=== PATIENT | female | born 1960 | race Caucasian/White ===

== ENCOUNTER 2017-04-01 06:47 | Inpatient (IN) ==
[2017-03-25 15:04] LABS: Basophils # (Auto) 0.1 K/mcL (0.0-0.3); Basophils % (Auto) 0.6 % (0.0-2.0); Eosinophils # (Auto) 0.1 K/mcL (0.0-0.7); Eosinophils % (Auto) 1.2 % (0.0-7.0); Granulocytes % (Auto) 58.8 % (38.0-78.0); Lymphocytes # (Auto) 2.7 K/mcL (1.5-4.8); Lymphocytes % (Auto) 32.4 % (15.5-49.0); Mean Cell Volume 86.3 fL (80.0-100.0); Mean Corpuscular HGB Conc 30.9 g/dL (31.0-36.0); Mean Corpuscular Hemoglobin 26.6 pg (26.0-34.0); Monocytes # (Auto) 0.6 K/mcL (0.1-0.9); Platelet Count 239 K/mcL (140-440); RBC 4.61 M/mcL (4.00-5.20); Red Cell Distribution Width 14.2 % (11.5-14.5)
[2017-03-25 15:27] LABS: Blood Urea Nitrogen 16 mg/dl (6-20)
[2017-03-26 13:10] LABS: Appearance,Urine CLEAR; Bacteria,Urine FEW /hpf (0); Bilirubin,Urine NEG (NEG); Color,Urine YELLOW; Glucose,Urine (UA) NEGATIVE (NEG); Leukocyte Esterase,Urine 25 /uL (NEG); Mucus,Urine FEW /hpf (0); Nitrate,Urine NEG (NEG); Protein,Urine NEG (NEG); Specific Gravity,Urine 1.024 (1.000-1.035); Urine Blood NEG mg/dL (<0.03); Urine RBC 2 /hpf (0-1); Urine Squamous Epithelial Cell 6 /hpf (0-4); Urine WBC 1 /hpf (0-4); Urobilinogen,Urine NEG (NEG)
[~2017-04-01 06:47] MED LIST: CELECOXIB 200 MG CAPSULE PO SCH; PREGABALIN 75 MG CAPSULE PO SCH; ceFAZolin 1 GM VIAL IV SCH
[2017-04-01 08:10] LABS: Appearance,Urine CLEAR; Bilirubin,Urine NEG (NEG); Color,Urine YELLOW; Glucose,Urine (UA) NEGATIVE (NEG); Leukocyte Esterase,Urine NEG /uL (NEG); Nitrate,Urine NEG (NEG); Protein,Urine NEG (NEG); Specific Gravity,Urine 1.018 (1.000-1.035); Urine Blood NEG mg/dL (<0.03); Urobilinogen,Urine NEG (NEG)
[2017-04-01] MEDS ORDERED: GENTAMICIN SULFATE 800 MG/20 ML VIAL IR ONE (09:23)
[2017-04-01] MEDS ORDERED: DEXAMETHASONE 10 MG/ML VIAL IV ONE (10:00)
[2017-04-01] MEDS ORDERED: MIDAZOLAM 5 MG/5 ML VIAL IV ONE (10:00)
[2017-04-01] MEDS ORDERED: PROPOFOL 200 MG/20 ML VIAL IV ONE (10:00)
[2017-04-01] MEDS ORDERED: TRANEXAMIC ACID 1,000 MG/10 ML VIAL IV ONE (10:00)
[2017-04-01] MEDS ORDERED: ONDANSETRON 4 MG/2 ML VIAL IV ONE (10:00)
[2017-04-01] MEDS ORDERED: LIDOCAINE HCL/PF 100 MG/5 ML SYRINGE IV ONE (10:00)
[2017-04-01] MEDS ORDERED: fentaNYL 100 MCG/2 ML VIAL IV PRN (11:02)
[2017-04-01] MEDS ORDERED: diphenhydrAMINE 50 MG/ML VIAL IV PRN (11:02)
[2017-04-01] MEDS ORDERED: METHOCARBAMOL 1,000 MG/10 ML VIAL IV PRN (11:02)
[2017-04-01] MEDS ORDERED: ONDANSETRON 4 MG/2 ML VIAL IV PRN (11:02)
[2017-04-01] MEDS ORDERED: BENZOCAINE/MENTHOL 1 LOZENGE PO PRN ×2 (11:02→11:31)
[2017-04-01] MEDS ORDERED: FLUMAZENIL 0.1 MG/ML ML IV PRN (11:02)
[2017-04-01] MEDS ORDERED: MEPERIDINE 25 MG/ML SYRINGE IV PRN (11:02)
[2017-04-01] MEDS ORDERED: LACTATED RINGERS 250 ML IV PRN (11:02)
[2017-04-01] MEDS ORDERED: IPRATROPIUM/ALBUTEROL 3 ML AMPUL.NEB NEB PRN (11:02)
[2017-04-01] MEDS ORDERED: HYDROmorphone 2 MG/ML SYRINGE IV PRN (11:02)
[2017-04-01] MEDS ORDERED: NALOXONE HCL 0.4 MG/ML VIAL IV PRN (11:02)
[2017-04-01] MEDS ORDERED: PROMETHAZINE 25 MG/ML VIAL IV PRN ×2 (11:02→11:31)
[2017-04-01] MEDS ORDERED: LACTATED RINGERS 1,000 ML IV SCH (11:15)
--- NOTE | 2017-04-01 11:30 | Brief Operative Note ---
Date of procedure: 04/01/17 Pre-op diagnosis: left hip oa Post-op diagnosis: same Procedure: left total hip arthroplasty Grafts/Implants: Yes Anesthesia: spinal Complications: none Surgeon: Gilberto Millan Frozen Yogurt Maker: Madina Anderson Estimated blood loss (cc): 150 Specimens Removed/Pathology: none sent Condition: stable Disposition: PACU
[2017-04-01] MEDS ORDERED: HYDROcodone/APAP 10/325MG TABLET PO PRN (11:31)
[2017-04-01] MEDS ORDERED: TRANEXAMIC ACID 1,000 MG/10 ML VIAL IV SCH (11:31)
[2017-04-01] MEDS ORDERED: MAGNESIUM HYDROXIDE 30 ML ORAL.SUSP PO PRN (11:31)
[2017-04-01] MEDS ORDERED: POLYETHYLENE GLYCOL 3350 17 GM PACKET PO PRN (11:31)
[2017-04-01] MEDS ORDERED: FLEETS ADULT ENEMA PR PRN (11:31)
[2017-04-01] MEDS ORDERED: METHOCARBAMOL 750 MG TABLET PO PRN (11:31)
[2017-04-01] MEDS ORDERED: BISACODYL 10 MG SUPP.RECT PR PRN (11:31)
--- NOTE | 2017-04-01 12:10 | Operative Note ---
DATE OF OPERATION: 04/01/2017 PREOPERATIVE DIAGNOSIS: Degenerative joint disease, left hip. POSTOPERATIVE DIGNOSIS: Degenerative joint disease, left hip. PROCEDURE: Left total hip arthroplasty. SURGEON: Jay Millan M.D. [employer]ET K[employer]EN SUPERVISOR SURGEON: Madina Anderson PA-C. ANESTHESIA: Spinal with LMA assist. ESTIMATED BLOOD LOSS: 100 mL. COMPLICATIONS: None noted. SPECIMENS REMOVED: None. DRAINS: None. IMPLANTS: DePuy Waverly Gription acetabular shell 50 mm; DePuy Waverly Altrx polyethylene acetabular liner neutral 32 x 50 mm; DePuy Ezel Hole Eliminator PS; DePuy Tri-Lock BPS femoral stem with Gription size 4 standard; DePuy Biolox delta ceramic femoral head plus 9, 32 mm. INDICATIONS: The patient has had a longstanding history of worsening pain in the hip that has failed conservative treatment. Radiographs have confirmed advanced degenerative joint disease. After a long discussion about treatment options, the patient elected to proceed with a hip arthroplasty. The risks and benefits were discussed with the patient in detail including, but not limited to, the risks of anesthesia, problems with the heart or lungs related to anesthesia, infection, compromise or injury to the nerves and blood vessels, deep venous thrombosis, pulmonary embolism, pneumonia, continued pain after surgery, worsening pain or symptoms after surgery, swelling, loss of motion, instability, leg length discrepancy, and need for repeat surgery. DESCRIPTION OF PROCEDURE: The patient was seen in pre-anesthesia waiting room where all questions were answered and the correct side and site were identified and marked. The patient was then brought to the operating room and administered the anesthetic and given pre-operative antibiotics. A time-out was then called. The patient was placed in the lateral decubitus position with all prominences well padded using the Lawton frame and the extremity was prepped and draped in the usual sterile fashion. Anesthesia gave the patient 1 gm of tranexamic acid via an intravenous route. A standard posterior approach was made. We dissected through the skin and subcutaneous tissue to the deep fascia. The deep fascia was split in line with the incision and a Charnley retractor was placed. We exposed, tagged, and incised the short external rotators and piriformis tendon and retracted them posteriorly to help protect the sciatic nerve which was palpated throughout the case. We then performed a T-capsulotomy and tagged the capsule edges. Prior to dislocating the hip, we set a length and offset gauge from a Steinmann pin in the iliac wing to a spike on the greater trochanter. The hip was then dislocated and a femoral neck osteotomy was performed to the pre-surgical templated level off the lesser trochanter. The head was removed and sized. We next turned our attention to the acetabulum. Retractors were placed for optimal visualization. A complete labral excision was performed. The capsule was preserved for later closure. We began reaming using anatomic landmarks with the DePuy Waverly acetabular system. We medialized the cup and reamed up to provide good fill and coverage of the trial. When the trial was stable and appropriately positioned with approximately 20 degrees of anteversion and 45 degrees of abduction, we impacted the DePuy Waverly cup and placed a cancellous screw in the posterior-superior quadrant. Osteophytes were removed from around the shell. We placed the trial liner and turned our attention to the femur. We placed retractors for visualization, internally rotated the femur, and established intramedullary access. We broached using the DePuy Tri-Lock stem to a stable platform medial, lateral, and rotationally with the appropriate version. We then performed a calcar reaming off the broach. Trials were then placed and optimized for leg length and stability. We used the leg length and offset guide to confirm our trials. Best stability, length, and offset characteristics were obtained with these sizes. We removed all trials and impacted the polyethylene acetabular liner in a standard fashion after a thorough irrigation. We then impacted the femoral stem to its broached location and placed the head. Final reduction was performed. Again, good stability, leg length, and offset characteristics were noted. We irrigated with three liters of antibiotic saline. We closed the capsule with #2 FiberWire. We placed a deep drain and closed the fascia with a combination of looped #0 Maxon and #0 Vicryl. We closed the subcutaneous tissue and skin in layers out to michelle in the skin. A sterile pressure dressing and abduction wedge was applied. All needle and sponge counts were correct. The patient was transferred to the recovery room in stable condition. Rafa Job ID: [id number] Doc ID: [id number] Jay Millan MD
--- NOTE | 2017-04-01 12:40 | XRay Report ---
HISTORY: Reason for Exam:Post-Op Total Hip FINDINGS: There is a well-positioned left total hip prosthesis. No fracture or abnormal soft tissue calcification are present. Right hip is normal. IMPRESSION: Well-positioned left hip prosthesis Interpreted and Authenticated by: Shyam Uribe 04/01/17
[2017-04-01] MEDS: 0.9 % SODIUM CHLORIDE 1,000 ML IV SCH ×2 (13:08→21:00)
[2017-04-01] MEDS: ONDANSETRON 4 MG/2 ML VIAL IV PRN (13:09)
[2017-04-01] MEDS: 0.9 % SODIUM CHLORIDE 10 ML SYRINGE IV SCH ×2 (14:25→21:11)
[2017-04-01] MEDS: HYDROmorphone 2 MG/ML SYRINGE IV PRN ×3 (14:38→21:18)
[2017-04-01] MEDS ORDERED: traMADol 50 MG TABLET PO PRN (15:30)
[2017-04-01] MEDS ORDERED: HYDROmorphone 2 MG TABLET PO PRN ×4 (15:30→17:30)
[2017-04-01] MEDS ORDERED: SCOPOLAMINE 1 PATCH PATCH TOPICAL ONE (15:58)
[2017-04-01] MEDS: KETOROLAC 15 MG/ML VIAL IV PRN (16:44)
[2017-04-01] MEDS: ceFAZolin 1 GM VIAL IV SCH (17:27)
[2017-04-01] MEDS: ASPIRIN 325 MG ENTERIC COATED TABLET PO SCH (21:17)
[2017-04-01] MEDS: HYDROmorphone 2 MG TABLET PO PRN (21:17)
[2017-04-01] MEDS: DOCUSATE SODIUM 100 MG CAPSULE PO SCH (21:17)
[2017-04-01] MEDS: SENNOSIDES 1 TABLET PO SCH (21:17)
[2017-04-02] MEDS: ceFAZolin 1 GM VIAL IV SCH (01:21)
[2017-04-02] MEDS: HYDROmorphone 2 MG/ML SYRINGE IV PRN ×4 (03:49→13:50)
[2017-04-02] MEDS: 0.9 % SODIUM CHLORIDE 1,000 ML IV SCH ×5 (05:56→22:55)
[2017-04-02] MEDS: 0.9 % SODIUM CHLORIDE 10 ML SYRINGE IV SCH ×3 (05:57→20:33)
--- NOTE | 2017-04-02 06:38 | Orthopedic Progress Note ---
Subjective Patient information: Note initiated : 04/02/17 at 6:36 am Service Date, if different from initiated Date: [] Patient: Dee Correia 57 y/o F admitted on 04/01/17 for Left Total Hip Arthroplasty. Chief Complaint: [] Interval history: doing ok from pain standpoint but nauseated Objective Vital signs: Vital Signs Temp Pulse Resp BP BP Pulse Ox 04/02/17 04:00 98.0 F 59 L 14 125/64 96 04/01/17 23:38 97.7 F 80 14 99/64 92 04/01/17 19:55 98.5 F 73 14 99/63 93 04/01/17 16:00 97.9 F 18 124/78 92 04/01/17 15:00 98.0 F 16 115/76 96 04/01/17 14:21 97.9 F 18 108/64 96 04/01/17 14:06 98.2 F 18 108/71 97 04/01/17 13:51 98.0 F 18 105/67 96 04/01/17 13:35 99 04/01/17 13:21 98.2 F 18 107/73 98 04/01/17 12:53 98.3 F 71 18 112/63 122/74 97 04/01/17 12:45 82 15 110/63 99 04/01/17 12:32 80 11 L 112/64 98 04/01/17 12:16 77 11 L 97/74 99 04/01/17 12:01 97.0 F 95 H 16 101/51 97 04/01/17 06:47 97.5 F 81 20 121/74 97 Intake and Output 04/01/17 04/02/17 04/02/17 21:59 05:59 13:59 Intake Total 100 / 100 1300 / 1300 Output Total 550 / 550 1600 / 1600 Balance -450 / -450 -300 / -300 Intake: IV 1000 / 1000 Sodium Chloride 0.9% 1, 1000 / 1000 000 ml @ 125 mls/hr IV . Q8H [facility] Rx#:[id number] Oral 100 / 100 300 / 300 Output: Void Amount 450 / 450 950 / 950 Emesis 100 / 100 650 / 650 Other: Meal sandwhich & jello Percent of Meal Consumed 100% Feeding Ability Independent # Voids 1 1 # Bowel Movements 1 Weight 198 lb Intake & Output: Intake & Output 04/01/17 04/02/17 04/02/17 21:59 05:59 13:59 Intake Total 100 / 100 1300 / 1300 Output Total 550 / 550 1600 / 1600 Balance -450 / -450 -300 / -300 Weight 198 lb Intake: IV 1000 / 1000 Sodium Chloride 0.9% 1, 1000 / 1000 000 ml @ 125 mls/hr IV . Q8H [facility] Rx#:[id number] Oral 100 / 100 300 / 300 Output: Void Amount 450 / 450 950 / 950 Emesis 100 / 100 650 / 650 Other: Meal sandwhich & jello Percent of Meal Consumed 100% Feeding Ability Independent # Voids 1 1 # Bowel Movements 1 Incision: Yes healing Incision clean and dry: Yes Dressing: Yes clean, Yes dry, Yes intact Weight bearing status: full Neurological exam IM: Yes abnormal gait, Yes alert, Yes oriented X3, Yes neurovascular intact Extremities exam IM: No calf tenderness, Yes Foot pink and warm, Yes neurovascular intact - Labs CBC & BMP: 04/02/17 04:58 03/25/17 13:49 Labs: Orthopedic Labs 03/25/17 13:49 PT 12.6 INR 0.9 04/02/17 03/25/17 04:58 13:49 Hgb 10.7 L 12.3 Hct 31.9 L 39.7 Assessment and Plan (1) Hip osteoarthritis pod 1 s/p angela wbat pain control dvt prophylaxis d/c planning Status: Acute
--- NOTE | 2017-04-02 06:40 | Discharge Summary ---
Ortho Discharge - [facility] - Patient Instructions Diet: Regular Diet Activity: ambulate with assistive device, weight bearing as tolerated Total Hip Protocol: Follow activity instructions as provided by Physical Therapy. Dressing Care: May shower in 2 days Patient Education: Total Hip Replacement (DC) Additional Instructions: Discharge Instructions: Do the exercises at home that physical therapy gave you. Jj [employer] ([employer]) [phone] APPOINTMENT: April 03. Check in at 2:15 for a 2:30 appointment. Take your photo ID, insurance cards, and current medication list with you to your first physical therapy appointment. Take your prescription to hot die picker any medication or equipment (such as walker, crutches, toilet riser or C.P.M.) Wear comfortable clothing for your physical therapy. Weight bearing as tolerated. If you have the Aquacel Ag dressing, leave in place for 7 days then remove. If dressing becomes soiled (turns black), remove and use gauze 4x4 dressing and silvasorb ointment and change daily. Keep incision clean and dry. If you have Dermabond (a dressing with a mesh-like appearance), leave open to air. You may start showering on post op day #2. The Dermabond dressing can get wet, do not scrub dressing. Pat dry. To avoid constipation while taking any narcotic pain medication, take an over the counter stool softener/laxative. Use your Cryocuff or ice packs as directed, on for 20 minutes at a time throughout the day. This and elevation will help with pain and swelling. Call your physician for fevers above 100.5 or pain not controlled by medication. Your prescriptions are with your discharge information. Some medications were electronically transmitted to your pharmacy of choice. - Problem Maintenance (1) Hip osteoarthritis Status: Acute - Follow Up Plan Follow Up Appointments: Madina Anderson PA-C [Physician [employer] Team Member] - 04/16/17 9:20 am Disposition: Home, Self-Care Prognosis: Good Rehab Potential: Good I certify that the patient requires SNF services: No Overall status at discharge: patient is progressing back to baseline - Orders For Discharge Prescriptions: Aspirin [Ecotrin] 325 mg PO BID #60 Docusate Sodium [Colace] 100 mg PO BID #60 capsule traMADol [Ultram] 1 - 2 tab PO Q4HP PRN #60 tablet PRN Reason: Pain
[2017-04-02] MEDS: LEVOTHYROXINE 50 MCG TABLET PO SCH (07:18)
[2017-04-02] MEDS: ASPIRIN 325 MG ENTERIC COATED TABLET PO SCH ×2 (09:17→20:31)
[2017-04-02] MEDS: FERROUS SULFATE 325 MG TABLET PO SCH (09:17)
[2017-04-02] MEDS: DOCUSATE SODIUM 100 MG CAPSULE PO SCH ×2 (09:17→20:33)
[2017-04-02] MEDS: ONDANSETRON 4 MG/2 ML VIAL IV PRN (15:09)
[2017-04-02] MEDS: traMADol 50 MG TABLET PO PRN ×2 (20:32→23:22)
[2017-04-02] MEDS: SENNOSIDES 1 TABLET PO SCH (20:33)
[2017-04-03] MEDS: KETOROLAC 15 MG/ML VIAL IV PRN (00:17)
[2017-04-03] MEDS: HYDROmorphone 2 MG TABLET PO PRN (00:18)
[2017-04-03] MEDS: traMADol 50 MG TABLET PO PRN ×4 (04:34→15:27)
[2017-04-03] MEDS: 0.9 % SODIUM CHLORIDE 1,000 ML IV SCH ×2 (05:49→12:09)
[2017-04-03] MEDS: 0.9 % SODIUM CHLORIDE 10 ML SYRINGE IV SCH ×2 (06:39→13:14)
--- NOTE | 2017-04-03 06:52 | Orthopedic Progress Note ---
Subjective Patient information: Note initiated : 04/03/17 at 6:51 am Service Date, if different from initiated Date: [] Patient: Dee Correia 57 y/o F admitted on 04/01/17 for Left Total Hip Arthroplasty. Chief Complaint: [] Interval history: doing well but still nauseated Objective Vital signs: Vital Signs Temp Pulse Pulse Resp BP Pulse Ox 04/03/17 04:15 98.6 F 84 16 111/69 93 04/02/17 23:23 98.2 F 77 24 H 115/69 93 04/02/17 20:00 98.0 F 82 24 H 119/59 93 04/02/17 17:07 96 04/02/17 16:00 97.0 F 14 136/69 90 04/02/17 11:58 97.5 F 14 110/70 96 04/02/17 07:15 97.6 F 14 103/65 96 04/02/17 07:10 86 97 Intake and Output 04/02/17 04/03/17 04/03/17 21:59 05:59 13:59 Intake Total 1110 / 1110 Output Total 1000 / 1000 750 / 750 Balance -1000 / -1000 360 / 360 Intake: IV 960 / 960 Sodium Chloride 0.9% 1, 960 / 960 000 ml @ 125 mls/hr IV . Q8H [facility] Rx#:[id number] Oral 150 / 150 Output: Void Amount 500 / 500 750 / 750 Emesis 500 / 500 Other: # Voids 1 1 Weight 197 lb 8 oz Intake & Output: Intake & Output 04/02/17 04/03/17 04/03/17 21:59 05:59 13:59 Intake Total 1110 / 1110 Output Total 1000 / 1000 750 / 750 Balance -1000 / -1000 360 / 360 Weight 197 lb 8 oz Intake: IV 960 / 960 Sodium Chloride 0.9% 1, 960 / 960 000 ml @ 125 mls/hr IV . Q8H [facility] Rx#:[id number] Oral 150 / 150 Output: Void Amount 500 / 500 750 / 750 Emesis 500 / 500 Other: # Voids 1 1 Incision: Yes healing Incision clean and dry: Yes Dressing: Yes clean, Yes dry, Yes intact Weight bearing status: full Neurological exam IM: Yes alert, Yes normal gait, Yes oriented X3, Yes motor sensory intact, Yes neurovascular intact Extremities exam IM: No calf tenderness, Yes neurovascular intact - Labs CBC & BMP: 04/02/17 04:58 03/25/17 13:49 Labs: Orthopedic Labs 03/25/17 13:49 PT 12.6 INR 0.9 04/03/17 04/02/17 03/25/17 05:45 04:58 13:49 Hgb Pending 10.7 L 12.3 Hct Pending 31.9 L 39.7 Assessment and Plan (1) Hip osteoarthritis pod 2 s/p angela wbat pain control dvt prophylaxis d/c planning Status: Acute
[2017-04-03] MEDS: LEVOTHYROXINE 50 MCG TABLET PO SCH (07:36)
[2017-04-03] MEDS: ASPIRIN 325 MG ENTERIC COATED TABLET PO SCH (08:33)
[2017-04-03] MEDS: FERROUS SULFATE 325 MG TABLET PO SCH (08:33)
[2017-04-03] MEDS: DOCUSATE SODIUM 100 MG CAPSULE PO SCH (08:33)
== END 2017-04-03 17:10 | disposition home or self-care (01) | DRG 470 ==
LOC: MEDSUR 06:47
PROVIDERS: ADMIT Orthopaedic Surgery Sports Medicine; ATTEND Orthopaedic Surgery Sports Medicine